=== PATIENT | female | born 1950 | race American Indian/Alaskan Native ===

== ENCOUNTER 2019-11-24 08:54 | Day surgery (SDC) | payer MEDICARE, OTHER ==
[2019-11-24] MEDS ORDERED: SODIUM CHLORIDE 0.9% 1000 ML 1,000 ML IV SCH (09:45)
--- NOTE | 2019-11-24 11:15 | Anesthesia Consultation ---
Anesthesia Consult and Med Hx Date of service: 11/24/19 - Airway Anesthetic Teeth Evaluation: Good ROM Head & Neck: Adequate Mental/Hyoid Distance: Adequate Mallampati Class: Class II Intubation Access Assessment: Probably Good - Pulmonary Exam CTA: Yes - Cardiac Exam Cardiac Exam: RRR - Pre-Operative Health Status ASA Pre-Surgery Classification: ASA3 Proposed Anesthetic Plan: MAC - Central Nervous System Hx Neuromuscular Disorder: Yes (Multiple sclerosis. Hip OA-limits activities. Not on steroids) - Gastrointestinal Hx Gastroesophageal Reflux Disease: Yes (On protonix) - Other Systems Hx Alcohol Use: Yes
--- NOTE | 2019-11-24 11:16 | Anesthesia Day of Surgery ---
Anesthesia Day of Surgery - Day of Surgery Patient Examined: Yes Patient H&P Reviewed: Yes Patient is NPO: Yes
[2019-11-24] MEDS ORDERED: fentaNYL 100 MCG/2 ML INJ ONE (11:34)
[2019-11-24] MEDS ORDERED: PROPOFOL 200 MG/20 ML VIAL IV ONE (11:34)
--- NOTE | 2019-11-24 11:57 | Procedure Note ---
Date of procedure: 11/24/19 Pre-op diagnosis: GERD/ H/O Hilaria Fundoplication Post-op diagnosis: other (Mild to Moderate Erosive Esophagitis//Gastritis/Mild Gastroparesis/ S/P Hilaria Fundoplication (with loosening of the wrap)/ No Peptic Ulcer Disease noted and Patent Pylorus) Procedure: EGD with Biopsy Anesthesia: MAC Surgeon: EDU LYONS Estimated blood loss: minimal Pathology: list Specimen disposition: to lab Condition: stable Disposition: same day (Treat with PPI and Reglan. Avoid aspirin and NSAID for 4 days; otherwise resume home meication. Follow up in 1 to 2 weeks ([phone]).)
--- NOTE | 2019-11-24 11:59 | Operative Report ---
PROCEDURE: Esophagogastroduodenoscopy with biopsy. INDICATIONS: The patient is a 69-year-old -Polish female with an underlying history of multiple sclerosis, had a colonoscopy done recently, which did not show any colon polyps. She has been having some GERD symptoms, has had a prior history of a Hilaria fundoplication. DESCRIPTION OF PROCEDURE: The procedure was done after getting informed consent. With MAC anesthesia, instrument was passed through the hypopharynx into the esophagus, which showed [id number] erosive esophagitis. Photo documentation was obtained. Biopsy was also done from the distal esophagus. The stomach showed gastritis. No gastric ulcers were noted in the straight or the retroverted view. Pylorus was patent. Duodenum in the first and second portion appeared normal. There were no ulcers noted within the duodenal lumen either. There was some evidence of mild gastroparesis within the gastric lumen. The gastric aspirate was suctioned out and gastritis was noted in the antrum. Biopsy was done from the gastric antrum, gastric body, and angular incisura with minimal bleeding. Biopsy was done to rule out for H. pylori and atrophic gastritis. The Hilaria fundoplication appears to have become a little loosened. ASSESSMENT: Gastroesophageal reflux disease symptoms, mild to moderate erosive esophagitis, gastritis, and gastroparesis. No peptic ulcer disease noted. Patent pylorus, status post Hilaria fundoplication with some loosening of the wrap. PLAN: To treat the patient with PPI. Also, have the patient stay on Reglan. Avoid aspirin and aspirin-related products for the next few days and have the patient follow up in the office in 1-2 weeks' time. The patient states that she has a history of incidental gallstones and if there is persistence of abdominal pain, then possibly a repeat ultrasound, HIDA scan, and blood work may be done with the next office visit. The procedure was done in the GI lab with assistance of the GI lab team, which included STEVEN Fan, irene Foster and with assistance of anesthesia. JOB# [id number] EDGAR/KIRSTEN
[2019-11-24] MEDS ORDERED: LIDOCAINE MPF (2%) 20 MG/1 ML VIAL 5 ML ONE (12:30)
[2019-11-24 12:43] VITALS: BP 131/62
--- NOTE | 2019-11-24 14:13 | Post Anesthesia Evaluation ---
- Post Anesthesia Evaluation Patient Participated: Yes Airway Patent: Yes Stable Respiratory Function: Yes Nausea/Vomiting: No Temp > 96.8F: Yes Pain Manageable: Yes Adequeate Hydration: Yes Anesthesia Complications: No Block Receding Appropriately: Not Applicable Patient on Ventilator: No
== END 2019-11-24 08:55 | disposition home or self-care (01) ==
LOC: GIO 08:54
DX: K21.0 Gastro-esophageal reflux disease with esophagitis (principal); K29.70 Gastritis, unspecified, without bleeding; K80.20 Calculus of gallbladder without cholecystitis without obstruction; Z87.891 Personal history of nicotine dependence; Z88.0 Allergy status to penicillin; Z79.899 Other long term (current) drug therapy; Z72.89 Other problems related to lifestyle; Z98.890 Other specified postprocedural states
CPT/HCPCS: 43239; 88305; 88342; J2704; J3010; J7030

== ENCOUNTER 2020-09-17 10:43 | Day surgery (SDC) | payer MEDICARE, OTHER ==
--- NOTE | 2020-09-17 11:41 | Anesthesia Day of Surgery ---
Anesthesia Day of Surgery - Day of Surgery Patient Examined: Yes Patient H&P Reviewed: Yes Patient is NPO: Yes
--- NOTE | 2020-09-17 11:42 | Anesthesia Consultation ---
Anesthesia Consult and Med Hx Date of service: 09/17/20 - Airway Anesthetic Teeth Evaluation: Good ROM Head & Neck: Adequate Mental/Hyoid Distance: Adequate Mallampati Class: Class II Intubation Access Assessment: Good - Pre-Operative Health Status ASA Pre-Surgery Classification: ASA3 Proposed Anesthetic Plan: MAC - Central Nervous System Hx Neuromuscular Disorder: Yes (Multiple sclerosis. Hip OA-limits activities. Not on steroids) - Gastrointestinal Hx Gastroesophageal Reflux Disease: Yes (On protonix) - Other Systems Hx Alcohol Use: Yes
[2020-09-17] MEDS ORDERED: SODIUM CHLORIDE 0.9% 1000 ML 1,000 ML IV SCH (12:00)
[2020-09-17] MEDS ORDERED: propofoL 200 MG/20 ML VIAL IV ONE ×2 (12:57)
[2020-09-17] MEDS ORDERED: LIDOCAINE MPF (2%) 20 MG/1 ML VIAL 5 ML ONE (13:14)
--- NOTE | 2020-09-17 13:43 | Procedure Note ---
Date of procedure: 09/17/20 Pre-op diagnosis: GERD/ H/O Hilaria Fundoplication/Lower GI Bleeding Procedure: EGD with Biopsy/ Colonoscopy with Biopsy Anesthesia: MAC Surgeon: EDU LYONS Estimated blood loss: minimal Pathology: list Specimen disposition: to lab Condition: stable Disposition: same day (Mesalamine Enema (for the Proctitis. continue with present treatment; avoid aspirin and NSAID for 3 days. F/U in 1 to 2 weeks ([phone]).)
--- NOTE | 2020-09-17 14:04 | Operative Report ---
PROCEDURE: Esophagogastroduodenoscopy with biopsy. INDICATIONS: This is a 70-year-old -Nigerian female with an underlying history of multiple sclerosis with severe GERD symptoms and a prior history of Hilaria fundoplication. EGD was done to assess for the severity of the erosive esophagitis. DESCRIPTION OF PROCEDURE: The procedure was done after getting informed consent with MAC anesthesia. Instrument was passed through the hypopharynx into the esophagus, which showed [id number]-yw-sdicwrln erosive esophagitis. Stomach showed gastritis. The patient has a history of Hilaria fundoplication and there was also some evidence of mild gastroparesis. The pylorus was patent. The duodenum in the first and the second portion appeared normal. Biopsy was done from the gastric antrum, gastric body and angular incisura to rule out for H. pylori and atrophic gastritis. Additional biopsy was done from the distal esophagus to assess for the severity of the erosive esophagitis and from the mid esophagus to assess for possible eosinophilic esophagitis. There was minimal bleeding associated with the procedure. No complications associated with the procedure. ASSESSMENT: Gastroesophageal reflux disease symptoms, iapy-rk-[id number] erosive esophagitis, gastritis, history of Hilaria fundoplication, mild gastroparesis. PLAN: To treat the patient with PPI and baclofen. Avoid aspirin and aspirin-related products and a colonoscopy will also be done to assess for the patient's history of lower GI bleeding. The procedure was done in the GI lab with assistance of the GI lab team, which included Rose Marie Rossi; biometrics technicianCl and with assistance of anesthesia. JOB# [id number] EDGAR/KIRSTEN
--- NOTE | 2020-09-17 14:10 | Operative Report ---
PROCEDURE: Colonoscopy. INDICATIONS: This is a 70-year-old -Omani female with an underlying history of multiple sclerosis. She has been complaining of some lower GI bleeding as well as GERD symptoms. EGD was done prior to the colonoscopy, which showed kwip-dp-uwbtmufv erosive esophagitis, gastritis, mild gastroparesis and a prior history of Hilaria fundoplication. Colonoscopy was done to assess for the source of the lower GI bleed. DESCRIPTION OF PROCEDURE: The procedure was done after getting informed consent with MAC anesthesia. Initial rectal exam was unremarkable. Instrument was passed through the rectum onto the cecum, which was identified with ileocecal valve and appendiceal orifice. Visualization was fair. The mucosa was washed with copious amounts of water. The cecum and ascending colon showed normal mucosa. There were a minor diverticula noted in the proximal transverse colon, the remaining part of the transverse colon, the descending colon and the sigmoid showed normal mucosa. Random biopsies were done to rule out for possible microscopic colitis. The rectum, however, showed csuu-yt-[id number] proctitis, which may have been the cause of the bleeding. Biopsies were also done from this area and there was no significant internal hemorrhoids noted on the retroverted view. ASSESSMENT: Lower gastrointestinal bleeding secondary to proctitis, which is mild to moderate, rule out microscopic colitis minor, diverticula in the proximal transverse colon. PLAN: To have the patient avoid aspirin and aspirin-related products. Continue with treatment because of GERD with PPI and baclofen. The patient will also be placed on mesalamine enema to help with the proctitis and asked to avoid aspirin and aspirin-related products and follow up in the office in 1-2 weeks' time. The procedure was done in the GI lab with assistance of the GI lab team, which included STEVEN, Rose Marie Rossi; Cl bonilla and with assistance of anesthesia. JOB# [id number] EDGAR/KIRSTEN
[2020-09-17 15:04] VITALS: BP 112/55
--- NOTE | 2020-09-18 04:20 | Consultation ---
HISTORY OF PRESENT ILLNESS: A 70-year-old -[place] female with an underlying history of multiple sclerosis, gastroparesis and chronic constipation. Lately, she has been complaining of increased GERD symptoms. She is on multiple medications for the GERD, which include Protonix as well as baclofen. She also has chronic constipation for which she is on Linzess. Lately she has been having some lower GI bleeding as well. She would like to have an EGD and a colonoscopy done to assess for her GI issues. ALLERGIES: SHE HAS A HISTORY OF ALLERGY TO PENICILLIN AND PERCOCET. SOCIAL HISTORY: Denies history of smoking or alcohol use. No cardiac issues. No flu shots. FAMILY HISTORY: She does have a family history of cancer, namely breast cancer. PHYSICAL EXAMINATION: VITAL SIGNS: Temperature is 98.4, blood pressure 136/63, pulse is 88, height is 5 feet 9 inches, weight is 122 pounds. HEENT: Shows no JVD. LUNGS: Shows reduced breath sounds. CARDIOVASCULAR: Normal. EXTREMITIES: No pedal edema. NEUROLOGIC: She is alert and oriented, but she has some problems with her gait because of her multiple sclerosis. ASSESSMENT: Gastrointestinal bleeding, gastroesophageal reflux disease symptoms, esophagitis, chronic constipation, multiple sclerosis, gastroparesis. PLAN: To do an EGD and a colonoscopy to be done at [facility] on 09/17/2020. Suprep to be used as the patient's prep. JOB# [id number] EDGAR/KIRSTEN
== END 2020-09-17 14:55 | disposition home or self-care (01) ==
LOC: GIO 10:43
DX: K21.00 Gastro-esophageal reflux disease with esophagitis, without bleeding (principal); K29.70 Gastritis, unspecified, without bleeding; K57.30 Diverticulosis of large intestine without perforation or abscess without bleeding; K62.89 Other specified diseases of anus and rectum; K63.89 Other specified diseases of intestine; K31.89 Other diseases of stomach and duodenum; Z88.8 Allergy status to other drugs, medicaments and biological substances; Z88.0 Allergy status to penicillin; Z79.899 Other long term (current) drug therapy; Z90.710 Acquired absence of both cervix and uterus; Z96.642 Presence of left artificial hip joint; Z79.82 Long term (current) use of aspirin; Z98.890 Other specified postprocedural states
CPT/HCPCS: 43239; 45380; 88305; 88342; J2704; J7030

== ENCOUNTER 2022-03-23 09:46 | Emergency (ER) | payer MEDICARE, OTHER ==
[2022-03-23] MEDS ORDERED: SODIUM CHLORIDE 0.9% 1000 ML 1,000 ML IV ONE (13:40)
[2022-03-23] MEDS ORDERED: ONDANSETRON 4 MG/2 ML INJ IV ONE (13:40)
--- NOTE | 2022-03-23 13:50 | Emergency Department Report ---
ED N/V/D HPI - General Chief complaint: Abdominal Pain Stated complaint: STOMACH PAIN/VOMITING Source: patient Mode of arrival: Ambulatory Limitations: No Limitations - History of Present Illness Initial comments: 71-year-old female presents to the ED with a history of GERD complaining of vomiting x1 day . Patient states that she has been out of her Protonix and Pepcid for 4 days. She states that the male has a delay in her medication. She denies any abdominal pain at present time. She denies any diarrhea at present time. Denies any fever, chills, chest pain or shortness of breath at present time. Patient is alert and oriented x3 . No acute distress noted no ill eddy earance noted. Patient is spitting in emesis in bag. MD complaint: vomiting Onset/Timin -: days(s) Description of Vomiting: other Associated Abdominal Pain: No Improves with: none Worsens with: none Associated Symptoms: denies other symptoms - Related Data Home Medications Medication Instructions Recorded Confirmed Last Taken Ambien 5 mg PO HS 11/24/19 11/23/20 11/22/19 Zanaflex 4mg TAB 1 tab PO HS 11/24/19 11/23/20 11/22/19 Previous Rx's Medication Instructions Recorded Last Taken Type Dicyclomine [Bentyl] 10 mg PO QID 30 Days #40 capsule 10/28/19 Unknown Rx Metoclopramide [Reglan TAB] 10 mg PO TID #40 tab 11/24/19 Unknown Rx Pantoprazole [Protonix TAB] 40 mg PO QDAY 30 Days #30 tablet 11/24/19 Unknown Rx Mesalamine W/Cleansing Wipes 4 gm RC QHS 10 Days #10 enema.kit 09/17/20 Unknown Rx [Rowasa 4 gm/60 ml Enema Kit] Famotidine [Pepcid] 40 mg PO QHS 30 Days #30 tab 03/23/22 Unknown Rx Pantoprazole [Protonix] 40 mg PO QDAY 30 Days #30 tablet 03/23/22 Unknown Rx Allergies Allergy/AdvReac Type Severity Reaction Status Date / Time acetaminophen [From Percocet] Allergy Intermediate Unknown Verified 03/23/22 10:21 oxycodone [From Percocet] Allergy Intermediate Unknown Verified 03/23/22 10:21 Penicillins Allergy Intermediate Unknown Verified 05/26/22 10:21 lactose AdvReac Diarrhea Verified 03/23/22 10:21 ED Review of Systems ROS: Stated complaint: STOMACH PAIN/VOMITING Other details as noted in HPI Constitutional: denies: chills, fever Eyes: denies: eye pain, eye discharge, vision change ENT: denies: ear pain, throat pain Respiratory: denies: cough, shortness of breath, wheezing Cardiovascular: denies: chest pain, palpitations Endocrine: no symptoms reported Gastrointestinal: denies: abdominal pain, nausea, diarrhea Genitourinary: denies: urgency, dysuria, discharge Musculoskeletal: denies: back pain, joint swelling, arthralgia Skin: denies: rash, lesions Neurological: denies: headache, weakness, paresthesias Psychiatric: denies: anxiety, depression Hematological/Lymphatic: denies: easy bleeding, easy bruising ED Past Medical Hx - Past Medical History Hx GERD: Yes Hx Renal Disease: No Additional medical history: MS - Social History Smoking Status: Never Smoker - Medications Home Medications: Home Medications Medication Instructions Recorded Confirmed Last Taken Type Dicyclomine [Bentyl] 10 mg PO QID 30 Days #40 capsule 10/28/19 11/23/20 Unknown Rx Ambien 5 mg PO HS 11/24/19 11/23/20 11/22/19 History Metoclopramide [Reglan TAB] 10 mg PO TID #40 tab 11/24/19 11/23/20 Unknown Rx Pantoprazole [Protonix TAB] 40 mg PO QDAY 30 Days #30 tablet 11/24/19 11/23/20 Unknown Rx Zanaflex 4mg TAB 1 tab PO HS 11/24/19 11/23/20 11/22/19 History Mesalamine W/Cleansing Wipes 4 gm RC QHS 10 Days #10 enema.kit 09/17/20 11/23/20 Unknown Rx [Rowasa 4 gm/60 ml Enema Kit] Famotidine [Pepcid] 40 mg PO QHS 30 Days #30 tab 03/23/22 Unknown Rx Pantoprazole [Protonix] 40 mg PO QDAY 30 Days #30 tablet 03/23/22 Unknown Rx ED Physical Exam - General Limitations: No Limitations General appearance: alert, in no apparent distress - Head Head exam: Present: atraumatic, normocephalic - Eye Eye exam: Present: normal appearance - ENT ENT exam: Present: mucous membranes moist - Neck Neck exam: Present: normal inspection - Respiratory Respiratory exam: Present: normal lung sounds bilaterally. Absent: respiratory distress - Cardiovascular Cardiovascular Exam: Present: regular rate, normal rhythm. Absent: systolic murmur, diastolic murmur, rubs, gallop - GI/Abdominal GI/Abdominal exam: Present: soft, normal bowel sounds - Extremities Exam Extremities exam: Present: normal inspection - Back Exam Back exam: Present: normal inspection - Neurological Exam Neurological exam: Present: alert, oriented X3 - Psychiatric Psychiatric exam: Present: normal affect, normal mood - Skin Skin exam: Present: warm, dry, intact, normal color. Absent: rash ED Course Vital Signs 03/23/22 03/23/22 10:18 16:29 Temperature 98.9 F 94.2 F L Pulse Rate 74 88 Respiratory 18 16 Rate Blood Pressure 152/65 134/86 [Right] O2 Sat by Pulse 99 99 Oximetry ED Medical Decision Making - Lab Data Result diagrams: 03/23/22 14:01 03/23/22 14:01 - Medical Decision Making 71-year-old female presents to the ED with a history of GERD complaining of v omiting x1 day . Patient states that she has been out of her Protonix and Pepcid for 4 days. She states that the male has a delay in her medication. She denies any abdominal pain at present time. She denies any diarrhea at present time. Denies any fever, chills, chest pain or shortness of breath at present time. Patient is alert and oriented x3 . No acute distress noted no ill appearance noted. Patient is spitting in emesis in bag. Physical examination is unremarkable. When attempted to discharge patient patient informed that she needed to spend the night at the hospital due to her caregiver being out of town. At that time patient informed that the reason she came to the hospital was because she did not want to spend the night at home alone. spice room worker spoken to the patient and son . Rechecked the patient is resting quietly quietly and comfortable and feeling better. I discussed the results of diagnostic study, my clinical impression and the plan for further treatment with the patient. Patient agrees with plan and discharge at this present time. All question addressed. I have given the patient instruction regarding a diagnosis ,expectation ,follow- up and return precaution. I explained to the patient that emergent condition may arise and to return to the ED for new worsen and any new persisting condition. I have explained the importance of following up with the primary care physician or referral physician listed below has instructed. The patient verbalized un derstanding of discharge instruction. Abnormal Lab Results 03/23/22 03/23/22 14:01 14:01 WBC 12.0 H RBC 4.26 Hgb 10.7 Hct 33.9 MCV 80 MCH 25 L MCHC 32 RDW 15.4 H Plt Count 280 Sodium 147 H Potassium 3.6 Chloride 107.6 H Carbon Dioxide 24 Anion Gap 19 BUN 10 Creatinine 0.6 Estimated GFR > 60 BUN/Creatinine Ratio 17 Glucose 125 H Calcium 9.5 Total Bilirubin 0.80 AST 156 H ALT 236 H Alkaline Phosphatase 135 H Total Protein 8.3 H Albumin 4.9 Albumin/Globulin Ratio 1.4 Lipase 13 Critical care attestation.: If time is entered above; I have spent that time in minutes in the direct care of this critically ill patient, excluding procedure time. ED Disposition Clinical Impression: GERD (gastroesophageal reflux disease), Transaminasemia Disposition: 01 HOME / SELF CARE / HOMELESS Is pt being admited?: No Does the pt Need Aspirin: No Condition: Stable Instructions: Food Choices for Gastroesophageal Reflux Disease, Adult, Gastroesophageal Reflux Disease, Adult, [id number]-[id number], Abdominal Pain (ED) Additional Instructions: Take medication as prescribed Follow-up with your GI doctor Prescriptions: Famotidine [Pepcid] 40 mg PO QHS 30 Days #30 tab Pantoprazole [Protonix] 40 mg PO QDAY 30 Days #30 tablet Referrals: BECKA PARRISH MD [Primary Care Provider] - 3-5 Days [facility] [Provider Group] - 3-5 Days Time of Disposition: 15:47
[2022-03-23] MEDS ORDERED: FAMOTIDINE 20 MG/2 ML INJ IV ONE (13:52)
[2022-03-23] MEDS ORDERED: PANTOPRAZOLE 40 MG INJ IV ONE (13:52)
[2022-03-23 14:30] LABS: Hematocrit 33.9 % (30.3-42.9); Hemoglobin 10.7 gm/dl (10.1-14.3); Mean Corpuscular HGB Conc 32 % (30-34); Mean Corpuscular Volume 80 fl (79-97); Platelet Count 280 K/mm3 (140-440); Red Blood Count 4.26 M/mm3 (3.65-5.03); Red Cell Distribution Width 15.4 % (13.2-15.2)
[2022-03-23 14:52] LABS: Alanine Aminotransferase 236 units/L (7-56); Albumin 4.9 g/dL (3.9-5); BUN/Creatinine Ratio 17; Blood Urea Nitrogen 10 mg/dL (7-17); Calcium 9.5 mg/dL (8.4-10.2); Hemolysis Index 1
[2022-03-23 16:31] VITALS: BP 134/86
== END 2022-03-23 16:29 | disposition home or self-care (01) ==
LOC: ED 09:46
DX: K21.9 Gastro-esophageal reflux disease without esophagitis (principal); R74.01 Elevation of levels of liver transaminase levels; Z88.0 Allergy status to penicillin; Z91.09 Other allergy status, other than to drugs and biological substances
CPT/HCPCS: 36415; 80053; 83690; 85027; 96361; 96374; 96375; 99283; C9113; J2405; J3490; J7030

== ENCOUNTER 2022-03-28 09:47 | Emergency (ER) | payer MEDICARE, OTHER ==
[2022-03-28 10:29] VITALS: BP 134/73
[2022-03-28 12:13] LABS: Alanine Aminotransferase 58 units/L (7-56); Albumin 4.4 g/dL (3.9-5); Blood Urea Nitrogen 10 mg/dL (7-17); Calcium 9.6 mg/dL (8.4-10.2); Hemolysis Index 24
[2022-03-28 12:16] LABS: BUN/Creatinine Ratio 14
[2022-03-28 14:11] LABS: Hematocrit 36.4 % (30.3-42.9); Hemoglobin 11.2 gm/dl (10.1-14.3); Mean Corpuscular HGB Conc 31 % (30-34); Mean Corpuscular Volume 82 fl (79-97); Platelet Count 271 K/mm3 (140-440); Red Blood Count 4.42 M/mm3 (3.65-5.03); Red Cell Distribution Width 15.1 % (13.2-15.2)
[2022-03-28 14:12] LABS: Basophils % (Auto) 0.7 % (0.0-1.8); Eosinophils % (Auto) 0.2 % (0.0-4.3); Lymphocytes # (Auto) 1.7 K/mm3 (1.2-5.4); Monocytes % (Auto) 3.7 % (0.0-7.3)
[2022-03-28 14:13] LABS: Basophils # (Auto) 0.1 K/mm3 (0.0-0.1); Monocytes # (Auto) 0.3 K/mm3 (0.0-0.8)
--- NOTE | 2022-03-29 08:16 | Emergency Department Report ---
ED Abdominal Pain HPI - General Chief Complaint: Abdominal Pain Stated Complaint: STOMACH ISSUES Time Seen by Provider: 03/29/22 08:11 Source: patient Mode of arrival: Ambulatory Limitations: No Limitations - History of Present Illness Initial Comments: 71-year-old female presents with nausea and vomiting that has been going on since March 23 and progressively getting worse. Patient was seen in the emergency room earlier and was started on Protonix for her symptoms but she had not had the prescription fill because she says she has it at home. Pt also have seen GI specialist in the past. Pt is at the [facility]. She denies any alcohol or smoking. She says she has not been able to keep any meals. No other modifying or associated factors. - Related Data Home Medications Medication Instructions Recorded Confirmed Last Taken Ambien 5 mg PO HS 11/24/19 11/23/20 11/22/19 Zanaflex 4mg TAB 1 tab PO HS 11/24/19 11/23/20 11/22/19 Previous Rx's Medication Instructions Recorded Last Taken Type Dicyclomine [Bentyl] 10 mg PO QID 30 Days #40 capsule 10/28/19 Unknown Rx Metoclopramide [Reglan TAB] 10 mg PO TID #40 tab 11/24/19 Unknown Rx Pantoprazole [Protonix TAB] 40 mg PO QDAY 30 Days #30 tablet 11/24/19 Unknown Rx Mesalamine W/Cleansing Wipes 4 gm RC QHS 10 Days #10 enema.kit 09/17/20 Unknown Rx [Rowasa 4 gm/60 ml Enema Kit] Famotidine [Pepcid] 40 mg PO QHS 30 Days #30 tab 03/23/22 Unknown Rx Pantoprazole [Protonix] 40 mg PO QDAY 30 Days #30 tablet 03/23/22 Unknown Rx Ondansetron [Zofran ODT TAB] 8 mg PO Q8HR 7 Days #21 tab.rapdis 03/29/22 Unknown Rx NS Sucralfate [Carafate] 1 gm PO ACHS 30 Days #60 tablet NS 03/29/22 Unknown Rx Allergies Allergy/AdvReac Type Severity Reaction Status Date / Time acetaminophen [From Percocet] Allergy Intermediate Unknown Verified 03/23/22 10:21 oxycodone [From Percocet] Allergy Intermediate Unknown Verified 03/23/22 10:21 Penicillins Allergy Intermediate Unknown Verified 03/23/22 10:21 lactose AdvReac Diarrhea Verified 03/23/22 10:21 ED Review of Systems ROS: Stated complaint: STOMACH ISSUES Other details as noted in HPI Comment: All other systems reviewed and negative Gastrointestinal: abdominal pain (epigastrium ), nausea, vomiting ED Past Medical Hx - Past Medical History Hx GERD: Yes Hx Renal Disease: No Additional medical history: MS, osteoporosis - Social History Smoking Status: Never Smoker Substance Use Type: None - Medications Home Medications: Home Medications Medication Instructions Recorded Confirmed Last Taken Type Dicyclomine [Bentyl] 10 mg PO QID 30 Days #40 capsule 10/28/19 11/23/20 Unknown Rx Ambien 5 mg PO HS 11/24/19 11/23/20 11/22/19 History Metoclopramide [Reglan TAB] 10 mg PO TID #40 tab 11/24/19 11/23/20 Unknown Rx Pantoprazole [Protonix TAB] 40 mg PO QDAY 30 Days #30 tablet 11/24/19 11/23/20 Unknown Rx Zanaflex 4mg TAB 1 tab PO HS 11/24/19 11/23/20 11/22/19 History Mesalamine W/Cleansing Wipes 4 gm RC QHS 10 Days #10 enema.kit 09/17/20 11/23/20 Unknown Rx [Rowasa 4 gm/60 ml Enema Kit] Famotidine [Pepcid] 40 mg PO QHS 30 Days #30 tab 03/23/22 Unknown Rx Pantoprazole [Protonix] 40 mg PO QDAY 30 Days #30 tablet 03/23/22 Unknown Rx Ondansetron [Zofran ODT TAB] 8 mg PO Q8HR 7 Days #21 tab.rapdis 03/29/22 Unknown Rx NS Sucralfate [Carafate] 1 gm PO ACHS 30 Days #60 tablet NS 03/29/22 Unknown Rx ED Physical Exam - General Limitations: No Limitations General appearance: alert, in no apparent distress - Head Head exam: Present: normal inspection - Eye Eye exam: Present: normal appearance Pupils: Present: normal accommodation - ENT ENT exam: Present: normal exam, normal orophraynx, mucous membranes moist - Neck Neck exam: Present: normal inspection. Absent: tenderness - Respiratory Respiratory exam: Present: normal lung sounds bilaterally. Absent: respiratory distress, accessory muscle use - Cardiovascular Cardiovascular Exam: Present: regular rate, normal rhythm, normal heart sounds - GI/Abdominal GI/Abdominal exam: Present: soft, tenderness (epigastric tenderness ), normal bowel sounds - Extremities Exam Extremities exam: Present: normal inspection, full ROM, normal capillary refill. Absent: tenderness, pedal edema, joint swelling - Back Exam Back exam: Absent: tenderness - Neurological Exam Neurological exam: Present: alert, oriented X3 - Psychiatric Psychiatric exam: Present: normal affect, normal mood - Skin Skin exam: Present: warm, normal color ED Course Vital Signs 03/28/22 10:24 Temperature 98.7 F Pulse Rate 82 Respiratory 16 Rate Blood Pressure 134/73 O2 Sat by Pulse 100 Oximetry - Reevaluation(s) Reevaluation #1: 03/29/22 08:17 here with nausea and non bloody emesis x 6-7 days-- with abdominal pain --differential could be not limited to gastritis, gastroenteritis, small bowel obstruction, pancreatitis, cholecystitis, PUD or any other inflammatory abdominal problem--to rule out the above will order routine acute abdomen that including CBC, CMP, UA, lipase and given GI cocktail plus Zofran and ivf ns 1L bolus x 1 for symptomatic relief... Reevaluation #2: 03/29/22 14:21 labs reviewed and noted to be unremarkable except hypernatremia 149 mg./dl considering that patient says she has been drinking a lot of Pedialyte since the nausea and vomiting started... Reevaluation #3: 03/29/22 14:58 CT abd/pel noted with no acute findings FINDINGS: LOWER CHEST: No significant abnormality LIVER: 2.7 cm hemangioma in the medial right hepatic lobe is unchanged. Tiny cy sts again noted at the hepatic dome. GALLBLADDER/BILIARY TREE: Multiple gallstones are present within the gallbladder. There is mild distention of the gallbladder, unchanged. No significant gallbladder wall thickening. There is mild dilation of the left hepatic lobe bile ducts and mild prominence of the common bile duct which are unchanged from prior studies. Prior MRCP was negative for choledocholithiasis or biliary obstruction lesion. PANCREAS: No significant abnormality SPLEEN: No significant abnormality ADRENALS: No significant abnormality KIDNEYS: There is diffuse cortical atrophy and right renal cortical scarring. No acute abnormality. No hydronephrosis. URINARY BLADDER: No significant abnormality REPRODUCTIVE ORGANS: Uterus is absent. No significant adnexal abnormality. STOMACH / BOWEL: Small bowel is normal in caliber. There is moderate stool throughout the colon. No evidence of colonic wall thickening or pericolonic inflammatory stranding. The appendix is normal in caliber. LYMPH NODES: No significant adenopathy. VASCULATURE: No significant abnormality. OTHER: No free air, free fluid, or focal fluid collection is identified. SKELETAL SYSTEM: Chronic and postoperative changes of the left proximal femur appear unchanged. No acute findings. IMPRESSION: 1. No acute findings of the abdomen or pelvis. 2. Cholelithiasis without evidence of cholecystitis. Unchanged mild intrahepatic and extrahepatic biliary dilatation from examinations. 3. Moderate stool throughout the colon, may reflect constipation. No evidence of localized bowel inflammation or obstruction. 4. Other stable chronic and incidental findings as above. We will discharge patient home on low-fat diet and to maximize acid reflux medication and antiemetics with close follow-up with GI specialist. ED Medical Decision Making - Lab Data Result diagrams: 03/28/22 11:07 03/28/22 11:07 - Medical Decision Making See progress note for detail - Differential Diagnosis See progress note for detail Critical care attestation.: If time is entered above; I have spent that time in minutes in the direct care of this critically ill patient, excluding procedure time. ED Disposition Clinical Impression: Hypernatremia Nausea and vomiting Qualifiers: Vomiting type: unspecified Qualified Code(s): R11.2 - Nausea with vomiting, unspecified Cholelithiasis Qualifiers: Cholelithiasis location: other site Biliary obstruction: without biliary obstruction Qualified Code(s): K80.80 - Other cholelithiasis without obstruction Disposition: 01 HOME / SELF CARE / HOMELESS Is pt being admited?: No Does the pt Need Aspirin: No Condition: Stable Instructions: Hypernatremia, [id number], Cholelithiasis, [id number], Nausea and Vomiting, Adult, [id number], Abdominal Pain (ED) Additional Instructions: Avoid heavy fatty meal to prevent recurrence of your symptoms Start with clear diet advance as tolerated It is very important that you call and schedule follow-up with your GI specialist for further evaluation and treatment Call or return to emergency if your symptoms worsen Take your antinausea nausea medicine and antacids to help your symptoms Prescriptions: Sucralfate [Carafate] 1 gm PO ACHS 30 Days #60 tablet NS Ondansetron [Zofran ODT TAB] 8 mg PO Q8HR 7 Days #21 tab.rapdis NS Referrals: PRIMARY CARE, [Primary Care Provider] - 3-5 Days Time of Disposition: 15:03
[2022-03-29] MEDS ORDERED: LIDOCAINE VISCOUS 2% 15 ML ORAL LIQD PO ONE (12:35)
[2022-03-29] MEDS ORDERED: ALUM-MAG HYDROXIDE-SIMETHICONE 200-200-20MG/5ML ORAL LIQD 30 ML PO ONE (12:35)
[2022-03-29] MEDS ORDERED: PHENobarbital 15 MG TAB PO ONE (13:00)
--- NOTE | 2022-03-29 14:41 | Cat Scan Report ---
CT abdomen pelvis w con INDICATION / CLINICAL INFORMATION: abdominal pain 100 ML OMNI 300 . TECHNIQUE: Axial CT images were obtained through the abdomen and pelvis after 100 cc of Omnipaque [address] scans at this location are performed using CT dose reduction for ALARA by means of automated exposure control. COMPARISON: MRI from 11/23/2020. CT from 11/22/2020 FINDINGS: LOWER CHEST: No significant abnormality LIVER: 2.7 cm hemangioma in the medial right hepatic lobe is unchanged. Tiny cysts again noted at the hepatic dome. GALLBLADDER/BILIARY TREE: Multiple gallstones are present within the gallbladder. There is mild diste ntion of the gallbladder, unchanged. No significant gallbladder wall thickening. There is mild dilati on of the left hepatic lobe bile ducts and mild prominence of the common bile duct which are unchange d from prior studies. Prior MRCP was negative for choledocholithiasis or biliary obstruction lesion. PANCREAS: No significant abnormality SPLEEN: No significant abnormality ADRENALS: No significant abnormality KIDNEYS: There is diffuse cortical atrophy and right renal cortical scarring. No acute abnormality. N o hydronephrosis. URINARY BLADDER: No significant abnormality REPRODUCTIVE ORGANS: Uterus is absent. No significant adnexal abnormality. STOMACH / BOWEL: Small bowel is normal in caliber. There is moderate stool throughout the colon. No e vidence of colonic wall thickening or pericolonic inflammatory stranding. The appendix is normal in c aliber. LYMPH NODES: No significant adenopathy. VASCULATURE: No significant abnormality. OTHER: No free air, free fluid, or focal fluid collection is identified. SKELETAL SYSTEM: Chronic and postoperative changes of the left proximal femur appear unchanged. No ac king salmon findings. IMPRESSION: 1. No acute findings of the abdomen or pelvis. 2. Cholelithiasis without evidence of cholecystitis. Unchanged mild intrahepatic and extrahepatic mayur iary dilatation from examinations. 3. Moderate stool throughout the colon, may reflect constipation. No evidence of localized bowel infl ammation or obstruction. 4. Other stable chronic and incidental findings as above. Signer Name: Yung Swift MD Signed: 03/29/2022 2:36 PM Workstation Name: [id number]
== END 2022-03-29 15:30 | disposition home or self-care (01) ==
LOC: ED 09:47
DX: R11.2 Nausea with vomiting, unspecified (principal); K80.20 Calculus of gallbladder without cholecystitis without obstruction; E87.0 Hyperosmolality and hypernatremia; K21.9 Gastro-esophageal reflux disease without esophagitis; M81.0 Age-related osteoporosis without current pathological fracture; Z88.0 Allergy status to penicillin; Z88.5 Allergy status to narcotic agent; Z88.6 Allergy status to analgesic agent; Z91.018 Allergy to other foods
CPT/HCPCS: 36415; 74177; 80053; 83690; 85025; 99284; Q9967